=== PATIENT | female | born 1960 | race Caucasian/White ===

== ENCOUNTER 2017-11-16 19:11 | Emergency (ER) | payer MEDICARE, SELFPAY ==
[2017-11-16 19:12] VITALS: BP 163/93; PULSE 104; RESP 16; TEMP 36.4; O2SAT 93; BMI 52.7
[2017-11-16 20:11] LABS: Absolute Lymphocyte Count 1.99 X10^3/ul (0.83-4.51); Absolute Neutrophil Count 4.6 X10^3/uL (2.0-7.7); Basophil# 0.06 X10^3/uL; Basophil% 0.8 % (0-1); Eosinophil# 0.38 X10^3/uL; Hemoglobin 12.7 g/dl (12.0-15.0); Lymphocyte # 1.99 X10^3/ul (4.0); Lymphocyte % 26.1 % (19-41); Mean Corpuscular Hgb 28.2 pg (27.0-32.0); Mean Corpuscular Volume 90.9 fL (81-99); Mean Platelet Vol. 9.9 fl (6.2-12.0); Monocyte# 0.56 X10^3/uL; Monocyte% 7.3 % (0-10); Neutrophil # 4.63 X10^3/uL (2.7-7.7); Neutrophil % 60.7 % (47-70); Platelet Count 348 K/mm3 (150-450); RBC Distribution Width CV 15.9 % (11.6-14.6); RBC Distribution Width SD 52.6 fl (35.1-43.9); Red Blood Count 4.51 M/mm3 (4.2-5.4); White Blood Count 7.6 K/mm3 (4.4-11.0)
[2017-11-16 20:23] LABS: Anion Gap 6 (5-15); BUN 16 mg/dL (7-18); BUN/Creat Ratio 18.3 RATIO (10-20); Calcium,Total 8.9 mg/dL (8.5-10.1); Chloride 105 mmol/L (98-107); Creatinine, Serum 0.87 mg/dL (0.55-1.02); EST Glomerular Filtration Rate 71 mL/min (>60); Est Glom Filt Rate - Afr Amer 86 mL/min (>60); Estimated Creatinine Clearance 58.31 ml/min; Glucose 75 mg/dL (74-106); Potassium 3.9 mmol/L (3.5-5.1); Sodium Level 141 mmol/L (136-145)
[2017-11-16 20:25] LABS: POSITIVE COUNT NO; POSITIVE DIFFERENTIAL NO; POSITIVE MORPHOLOGY NO
--- NOTE | 2017-11-16 21:05 | RAD_ITS ---
STUDY: X-RAY - LEFT FOOT CLINICAL: Female, 57 years old. Pain, swelling TECHNIQUE: 3 view(s) of the foot. COMPARISON: None. FINDINGS: There is calcaneal spurring. Normal visualized subtalar, talonavicular, calcaneocuboid, tarsal and tarsometatarsal articulations. Normal metatarsi. Normal metatarsophalangeal joint of the great toe. Normal tibial and fibular sesamoid bones. Normal interphalangeal joint of the great toe. Normal phalanges of the great toe. Normal second through fifth metatarsophalangeal joints. Normal interphalangeal joints and phalanges of the lesser toes. The soft tissue structures are unremarkable. RAD/Foot min 3 Views IMPRESSION: No fracture Electronically Signed: Edmar Mendez MD at 21:29 EDT Tel , Service support ,
--- NOTE | 2017-11-16 21:22 | ED.DCSUM_ITS ---
- ER Visit Summary Date of Service: 11/16/17 Chief Complaint: Pain redness left foot History of Present Illness: The patient is a 57 F states that she has had swelling in the left foot for a while. She is not sure of exactly how long but she has had several doctors visits where she is talked about it. She states now the foot is red warm and has swelling and it is more than normal. She was recently on metronidazole for bacterial vaginosis. She states that she went to the urgent care to be evaluated and they sent her to the emergency room. She denies any calf pain. She states she has a history of breast cancer. Physical Examination: Afebrile vital signs are stable Gen: Well-nourished well-developed morbidly obese Head: Normocephalic atraumatic Eyes: Perrl EOMI ENT: TMs clear no rhinorrhea moist mucous membranes Neck: Supple no lymphadenopathy no JVD nontender CVS: Regular rate rhythm no murmurs normal S1-S2 Respiratory: No distress clear to auscultation bilaterally chest nontender Abdomen: Soft nontender nondistended normal bowel sounds no masses Back: Nontender Extremity: Left foot is edematous with edema on the dorsum of the foot. This extends slightly onto the anterior aspect of the lower leg. There are no obvious breaks in the skin. No obvious foreign bodies. The calf is not swollen. There are no palpable cords. Calf is nontender. Skin: Normal color no rash Neuro: alert orientated ?3 CN II-XII intact normal strength sensation reflexes gait cerebellar Psych: Normal affect normal mood Test Results: White count is normal. Foot x-ray shows swelling. Emergency Department Course and Treatment: Patient will be started on clindamycin. Return if worsening or fever. Patient is comfortable with this plan. Impression: 1. Left foot cellulitis This note was generated with [employer] dictation software. It may contain incorrect words, spelling, and punctuation that were not noted in review of the chart prior to signing ED Disposition - Plan for ED Patient: Disposition: Home or Assisted Living Chief Complaint: Edema Instructions: ED Infec Skin Cellulitis Prescriptions: Clindamycin HCl [Cleocin] 300 mg PO Q6H #40 cap Referrals: Rosetta Hilliard MD [Primary Care Provider] - 3-5 Days Additional Instructions: If your symptoms are worsening or you have concerns/fever please come to the emergency department immediately
[2017-11-16] MEDS: Clindamycin HCl 150 MG Capsule 300 MG PO (21:46)
[2017-11-16 21:51] VITALS: BP 150/87; PULSE 89; RESP 16; O2SAT 94
== END 2017-11-16 21:51 | disposition home or self-care (01) ==
PROVIDERS: Emergency Provider Emergency Medicine; Family Provider Internal Medicine; PCP Internal Medicine
DX: L03.116 Cellulitis of left lower limb (principal); E66.01 Morbid (severe) obesity due to excess calories; J45.909 Unspecified asthma, uncomplicated; F41.9 Anxiety disorder, unspecified; F32.9 Major depressive disorder, single episode, unspecified; Z85.3 Personal history of malignant neoplasm of breast; Z87.42 Personal history of other diseases of the female genital tract; Z90.49 Acquired absence of other specified parts of digestive tract; Z87.891 Personal history of nicotine dependence; Z79.899 Other long term (current) drug therapy
CPT/HCPCS: 73630; 80048; 85025; 87040; 99284; A4216

== ENCOUNTER 2021-02-23 17:54 | Emergency (ER) | payer MEDICARE, MEDICAID, SELFPAY ==
[2021-02-23 17:56] VITALS: BP 126/64; PULSE 112; RESP 16; TEMP 37.7; O2SAT 93; BMI 55.4
--- NOTE | 2021-02-23 19:50 | CT_ITS ---
STUDY: CT ABDOMEN AND PELVIS WITHOUT CONTRAST REASON FOR EXAM: Female, 60 years old. Right flank pain RADIATION DOSAGE (If Supplied By Facility): CTDIvol = ( 33.77 ) mGy, DLP = ( 3206.24 ) mGycm TECHNIQUE: Transaxial images were obtained from the dome of the diaphragm to the symphysis pubis without oral contrast, and without intravenous contrast. Sagittal and coronal images were reconstructed. Individualized dose optimization techniques were used for this CT. COMPARISON: None. FINDINGS: There is lower lung atelectasis. There is right lower lung granuloma. The visualized portions of the heart are within normal limits. There is decreased attenuation of the liver consistent with steatosis. There are surgical clips in the gallbladder fossa consistent with a prior cholecystectomy. Normal spleen. Normal pancreas. There is 2.2 cm left adrenal mass. Normal right kidney. There is 0.3 cm stone in the left kidney. Normal visualized stomach. Normal small intestine. Normal colon. The appendix is visualized and appears normal. There is atherosclerotic calcification of the abdominal aorta, without a demonstrated aneurysm. Normal inferior vena cava. Normal retroperitoneum. Normal urinary bladder. Normal visualized uterus. There is no free fluid in the abdomen or pelvis. Normal abdominal wall. There are diffuse degenerative changes of the visualized lumbar spine. There is left hip replacement. CT/Abdomen/Pelvis without Cont IMPRESSION: Left renal stone. No hydronephrosis. Fatty infiltration of the liver. No biliary dilatation. Electronically Signed: Soren Valerio MD at 21:01 EDT , Service support ,
--- NOTE | 2021-02-23 19:56 | EX.ED.DYSGE1 ---
HPI History of Present Illness Chief Complaint: Flank Pain Informant: patient Onset/Context/Timing Onset: Today Context: Gradual Onset Timing: Continuous Quality: Sharp, aching Location: Right flank Worsened by: Nothing Relieved by: Nothing Narrative Narrative: Patient presents with right flank pain that became worse today. Patient states she had left flank pain recently. Patient states she had a CT scan done at [facility] for her left flank pain and was diagnosed with a renal artery aneurysm. Patient states that today her pain moved to the right. Patient also developed a fever today of 101 at home. Patient also admits to a sore throat and left ear pain last week. Patient admits to some dysuria but denies any hematuria. [facility] Medical History Anxiety Arthritis Breast cancer Chronic pain COPD (chronic obstructive pulmonary disease) Degenerative disk disease Depression Fibromyalgia Former smoker Sleep apnea Home Medications alprazolam [Xanax] 1 mg PO TID 11/16/17 [History Last Taken Unknown] aripiprazole 10 mg PO DAILY 11/16/17 [History Last Taken Unknown] budesonide-formoterol [Symbicort 160-4.5 Mcg Inhaler] 6 g IH BID 11/16/17 [History Last Taken Unknown] bupropion HCl [Wellbutrin Sr] 200 mg PO BID 11/16/17 [History Last Taken Unknown] clindamycin HCl 300 mg PO Q6H #40 cap 11/16/17 [Rx Last Taken Unknown] cyclobenzaprine 10 mg PO TID 11/16/17 [History Last Taken Unknown] lamotrigine [Lamictal] 400 mg PO DAILY 11/16/17 [History Last Taken Unknown] meloxicam 15 mg PO DAILY 11/16/17 [History Last Taken Unknown] metoprolol tartrate 12.5 mg PO BID 11/16/17 [History Last Taken Unknown] multivitamin [Daily Multiple Vitamin] 1 ea PO DAILY 11/16/17 [History Last Taken Unknown] pregabalin [Lyrica] 200 mg PO BID 11/16/17 [History Last Taken Unknown] tramadol [Ultram] 200 mg PO TID 11/16/17 [History Last Taken Unknown] cephalexin 500 mg PO Q6 #12 capsule 02/23/21 [Rx Last Taken Unknown] Allergy/AdvReac Type Severity Reaction Status Date / Time No Known Allergies Allergy Verified 02/23/21 17:55 Surgical History H/O right mastectomy History of cholecystectomy Hx of total hip arthroplasty Social History Smoking Status: Former smoker ROS ROS ED Constitutional Constitutional ED: Reports fever(s); Denies chills Eyes Eyes: Reports blurry vision; Denies diplopia ENT ENT ED: Reports ear pain left and sore throat; Denies rhinorrhea Cardiovascular Cardiovascular: Denies chest pain or palpitations Respiratory/Chest Respiratory/Chest: Denies cough or dyspnea Gastrointestinal Gastrointestinal: Reports abdominal pain; Denies nausea or vomiting Genitourinary Genitourinary ED: Reports dysuria; Denies hematuria Musculoskeletal Musculoskeletal: Reports back pain; Denies neck pain Integumentary Reports rash; Denies abscess Neurologic Neurologic: Reports headache(s); Denies weakness Allergic/Immunologic Allergic/Immunologic ED: Denies mouth swelling or urticaria EXAM Physical Exam Const Vital Signs: 02/23/21 17:56 02/23/21 19:15 02/23/21 20:43 Temperature 99.9 F H Temperature Source Temporal Pulse Rate 112 H 101 H Respiratory Rate 16 16 Respiratory Effort Normal Respiratory Pattern Normal Blood Pressure 126/64 H 135/69 H Blood Pressure Mean 84 91 Pulse Ox 93 97 Oxygen Delivery Method Nasal Cannula Room Air Oxygen Flow Rate (L/min) 4 02/23/21 21:10 02/23/21 22:12 Temperature Temperature Source Pulse Rate 101 H 99 Respiratory Rate 16 16 Respiratory Effort Respiratory Pattern Blood Pressure 112/69 113/58 L Blood Pressure Mean 83 76 Pulse Ox 98 97 Oxygen Delivery Method Room Air Room Air Oxygen Flow Rate (L/min) Positive well nourished, well developed and obese General Appearance ED: well developed Nutritional Appearance: obese HEENT Reports moist mucous membranes Neck supple and no JVD Resp normal respiratory effort and clear to auscultation bilaterally Cardio regular rate, regular rhythm and no murmurs GI normal to inspection, nondistended, normoactive bowel sounds Palpation: soft and tender RUQ Back/Spine General Back: CVA tenderness right Extremity normal to inspection General Extremety ED: Negative for edema or tenderness General Extremity: Negative for edema Neuro oriented x3, CN's II-XII intact bilaterally and no sensory deficits noted Sensorium / Orientation: alert Motor Exam: strength 5/5 throughout Psych mental status grossly normal Skin no rashes or lesions noted MDM MDM MDM Narrative Medical decision making narrative: CBC shows a mild leukocytosis of 11.4. There is also mild anemia with a hemoglobin of 9.3 hematocrit 34.6. Comprehensive metabolic profile was essentially within normal limits. Lactate was normal. Urinalysis shows leukocyte esterase of 100 with 5-10 white blood cells. Urine culture was ordered. CT scan of the abdomen and pelvis was obtained. There is a left renal stone. There is no hydronephrosis. There is no acute intra-abdominal process. Patient was given a prescription for Keflex. Patient was given her first dose here. Patient was instructed to follow-up with her primary care physician in 3 to 5 days. Patient understood and was agreeable with the plan. All questions were answered. Lab Data Attestation: I reviewed the patient's lab results. Labs: Laboratory Results - last 24 hr 02/23/21 02/23/21 02/23/21 19:35 19:35 19:55 WBC 11.4 H RBC 4.34 Hgb 9.3 L Hct 34.6 L MCV 79.7 L MCH 21.4 L MCHC 26.9 L RDW Std Deviation 52.3 H RDW Coeff of Lai 18.4 H Plt Count 409 MPV 10.5 Immature Gran % (Auto) 1.000 H Neut % (Auto) 77.8 H Lymph % (Auto) 11.5 L [place] % (Auto) 6.6 Eos % (Auto) 2.7 Baso % (Auto) 0.4 Absolute Neuts (auto) 8.9 H Absolute Lymphs (auto) 1.31 Nucleated RBC % 0 Sodium 138 Potassium 4.3 Chloride 96 L Carbon Dioxide 38.0 H Anion Gap 4 L BUN 12 Creatinine 0.86 Estim Creat Clear Calc 56.83 Est GFR (MDRD) Af Amer 86 Est GFR (MDRD) Non-Af 71 BUN/Creatinine Ratio 14.0 Glucose 85 Lactic Acid 0.6 Calcium 9.0 Total Bilirubin 0.30 AST 27 ALT 33 Alkaline Phosphatase 167 H Total Protein 7.9 Albumin 3.4 Globulin 4.5 H Albumin/Globulin Ratio 0.8 L Urine Color Urine Clarity Urine pH Ur Specific [place] Urine Protein Urine Glucose (UA) Urine Ketones Urine Occult Blood Urine Nitrite Urine Bilirubin Urine Urobilinogen Ur Leukocyte Esterase Urine RBC Urine WBC Ur Squamous Epith Cells Urine Bacteria Urine Mucus 02/23/21 20:39 WBC RBC Hgb Hct MCV MCH MCHC RDW Std Deviation RDW Coeff of Lai Plt Count MPV Immature Gran % (Auto) Neut % (Auto) Lymph % (Auto) [place] % (Auto) Eos % (Auto) Baso % (Auto) Absolute Neuts (auto) Absolute Lymphs (auto) Nucleated RBC % Sodium Potassium Chloride Carbon Dioxide Anion Gap BUN Creatinine Estim Creat Clear Calc Est GFR (MDRD) Af Amer Est GFR (MDRD) Non-Af BUN/Creatinine Ratio Glucose Lactic Acid Calcium Total Bilirubin AST ALT Alkaline Phosphatase Total Protein Albumin Globulin Albumin/Globulin Ratio Urine Color Yellow Urine Clarity Clear Urine pH 6.0 Ur Specific [place] 1.010 Urine Protein Negative Urine Glucose (UA) Normal Urine Ketones Negative Urine Occult Blood Negative Urine Nitrite Negative Urine Bilirubin Negative Urine Urobilinogen Normal Ur Leukocyte Esterase 100 H Urine RBC 0 SEEN Urine WBC 5-10 SEEN Ur Squamous Epith Cells 0 SEEN Urine Bacteria RARE Urine Mucus 0 SEEN Radiography Diagnostic Testing: Radiology Impression Abdomen/Pelvis CT 02/23/21 19:50 IMPRESSION: Left renal stone. No hydronephrosis. Fatty infiltration of the liver. No biliary dilatation. Electronically Signed: Soren Valerio MD at 21:01 EDT , Service support , Discharge Plan Triage Chief Complaint: Flank Pain ED Provider: Curtis Joel Dx/Rx/DC Orders Clinical Impression: Urinary tract infection Instructions: ED CYSTITIS Female Adult Prescriptions: New cephalexin [cephalexin] 500 MG capsule 500 mg PO Q6 Qty: 12 RF: 0 No Action multivitamin [Daily Multiple] 1 EACH tablet 1 ea PO DAILY RF: 0 cyclobenzaprine 10 MG tablet 10 mg PO TID RF: 0 lamotrigine [Lamictal] 200 MG tablet 400 mg PO DAILY RF: 0 alprazolam [Xanax] 1 MG tablet 1 mg PO TID RF: 0 meloxicam 15 MG tablet 15 mg PO DAILY RF: 0 tramadol [Ultram] 50 MG tablet 200 mg PO TID RF: 0 bupropion HCl [Wellbutrin SR] 200 MG tablet sustained-release 12 hr 200 mg PO BID RF: 0 aripiprazole 10 MG tablet 10 mg PO DAILY RF: 0 metoprolol tartrate 25 MG tablet 12.5 mg PO BID RF: 0 pregabalin [Lyrica] 200 MG capsule 200 mg PO BID RF: 0 budesonide-formoterol [Symbicort] 6 GM HFA aerosol inhaler 6 g IH BID RF: 0 clindamycin HCl 300 MG capsule 300 mg PO Q6H Qty: 40 RF: 0 Primary Care Provider: Rosetta Hillaird Referrals: Rosetta Hilliard MD [Primary Care Provider] - 3-5 Days Disposition Disposition: Home, Self Care
[2021-02-23 20:01] LABS: Absolute Lymphocyte Count 1.31 X10^3/uL (0.83-4.51); Absolute Neutrophil Count 8.9 X10^3/uL (2.0-7.7); Basophil# 0.05 X10^3/uL; Basophil% 0.4 % (0-1); Eosinophil# 0.31 X10^3/uL; Eosinophils% 2.7 % (0-5); Hematocrit 34.6 % (37-47); Hemoglobin 9.3 g/dL (12.0-15.0); Lymphocyte # 1.31 X10^3/ul (0.83-4.51); Lymphocyte % 11.5 % (19-41); Mean Corp Hgb Conc 26.9 g/dL (32-36); Mean Corpuscular Hgb 21.4 pg (27.0-32.0); Mean Corpuscular Volume 79.7 fL (81-99); Mean Platelet Vol. 10.5 fl (6.2-12.0); Monocyte# 0.75 X10^3/uL; Monocyte% 6.6 % (0-10); NRBC Flagged by Analyzer 0 % (0-5); Neutrophil % 77.8 % (47-70); Platelet Count 409 K/mm3 (150-450); RBC Distribution Width CV 18.4 % (11.6-14.6); RBC Distribution Width SD 52.3 fl (35.1-43.9); Red Blood Count 4.34 M/mm3 (4.2-5.4); White Blood Count 11.4 K/mm3 (4.4-11.0)
[2021-02-23] MEDS: 0.9% Normal Saline 1,000 ML 1000 ML IV (20:05)
[2021-02-23] MEDS: Morphine 4 MG/ML Syringe IV (20:06)
[2021-02-23 20:16] LABS: ALB/GLOB Ratio 0.8 RATIO (0.9-2.4); AST(SGOT) 27 U/L (15-37); Alanine Aminotransfer ALT/SGPT 33 U/L (13-56); Albumin, Serum 3.4 g/dL (3.2-5.0); Alkaline Phosphatase 167 U/L (45-117); Anion Gap 4 (5-15); BUN 12 mg/dL (7-18); Chloride 96 mmol/L (98-107); Creatinine, Serum 0.86 mg/dL (0.55-1.02); EST Glomerular Filtration Rate 71 mL/min (>60); Est Glom Filt Rate - Afr Amer 86 mL/min (>60); Estimated Creatinine Clearance 56.83 ml/min; Globulin 4.5 g/dL (2.2-4.2); Glucose 85 mg/dL (74-106); Potassium 4.3 mmol/L (3.5-5.1); Protein, Total 7.9 g/dL (6.4-8.2); Sodium Level 138 mmol/L (136-145)
[2021-02-23 20:32] LABS: Lactic Acid 0.6 mmol/L (0.4-1.9)
[2021-02-23 20:43] VITALS: BP 135/69; PULSE 101; RESP 16; O2SAT 97
[2021-02-23 20:47] LABS: Mucous, Urine 0 SEEN /hpf (<or=2+); Red Blood Cells-Urine 0 SEEN /hpf (0-5); Squamous Epithelial Cells - UA 0 SEEN /hpf (5-10)
[2021-02-23 20:48] LABS: Color, Urine Yellow (Yellow); Glucose, Dipstick Normal (Normal); Ketone-Dipstick Negative (Negative); Leukocyte Esterase-Dipstick 100 /ul (Negative); Nitrite-Dipstick Negative (Negative); Occult Blood-Urine Negative /ul (Negative); Protein-Dipstick Negative (Negative); Urine Bilirubin Dipstick Negative (Negative); Urine Clarity Clear (Clear); Urine Urobilinogen Normal (Normal)
[2021-02-23 21:05] LABS: Bacteria RARE /hpf (None Seen); White Blood Cells 5-10 SEEN /hpf (0-5)
[2021-02-23 21:10] VITALS: BP 112/69; PULSE 101; RESP 16; O2SAT 98
[2021-02-23 22:12] VITALS: BP 113/58; PULSE 99; RESP 16; O2SAT 97
[2021-02-23 23:02] VITALS: BP 118/72; PULSE 103; RESP 18; O2SAT 96
[2021-02-23] MEDS: Cephalexin 500 MG Capsule PO (23:05)
[2021-02-23 23:16] VITALS: BP 118/72; PULSE 102; RESP 18; O2SAT 95
== END 2021-02-23 23:17 | disposition home or self-care (01) ==
PROVIDERS: Emergency Provider Emergency Medicine; PCP Internal Medicine
DX: N39.0 Urinary tract infection, site not specified (principal); N20.0 Calculus of kidney; I72.2 Aneurysm of renal artery; D64.9 Anemia, unspecified; F32.9 Major depressive disorder, single episode, unspecified; F41.9 Anxiety disorder, unspecified; G89.29 Other chronic pain; M79.7 Fibromyalgia; G47.30 Sleep apnea, unspecified; J44.9 Chronic obstructive pulmonary disease, unspecified; M19.90 Unspecified osteoarthritis, unspecified site; Z85.3 Personal history of malignant neoplasm of breast; Z79.899 Other long term (current) drug therapy; Z87.891 Personal history of nicotine dependence
CPT/HCPCS: 74176; 80053; 81001; 83605; 85025; 87077; 87086; 87088; 87186; 96361; 96374; 99285; J7030; A4216